=== PATIENT | female | born 1990 | race Caucasian/White ===

== ENCOUNTER 2019-10-28 12:12 | Emergency (ER) | payer BC, MEDICAID, SELFPAY ==
[2019-10-28 12:36] VITALS: BP 127/64; PULSE 70; RESP 16; TEMP 36.6; O2SAT 100
--- NOTE | 2019-10-28 13:52 | ED.GENADULT ---
HPI - General Adult General Chief complaint: Upper Respiratory Infection Stated complaint: fever nausea x 4 days Time Seen by Provider: 10/28/19 13:53 Source: patient and RN notes reviewed Mode of arrival: ambulatory Limitations: no limitations History of Present Illness HPI narrative: 29-year-old female presents with complaints of fatigue, fever, body aches, decrease appetite, vomiting, and nausea for the past 5 days. Vomiting and nausea without blood or coffee ground emesis or abdominal pain. No treatment for nausea or vomiting, last emesis 2 days ago. Tylenol, last this morning @08:00 with relief for fever and body aches. No abdominal pain or cramping or diarrhea. LBM 10/27/19 without blood. Exacerbating factors consist of eating and drinking. High fevers 104F, orally, without sweats or chills, last 1 day ago. Denies headache, dizziness, back pain, dysuria, and blood in stool. Tolerating po intake well. Remains active. LMP 09/13/19. Some parts of this dictation were generated by voice recognition software and may contain typographical and/or grammatical inaccuracies. Related Data Allergies Allergy/AdvReac Type Severity Reaction Status Date / Time No Known Allergies Allergy Verified 10/28/19 13:29 Review of Systems Review of Systems: Narrative: CONSTITUTIONAL: Complains of fever, fatigue. Denies chills, sweats. EYES: Denies visual changes, redness, discharge. ENT: Denies rhinorrhea, congestion, sore throat, otalgia. CARDIOVASCULAR: Denies chest pain, palpitations, edema. RESPIRATORY: Denies dyspnea, wheezing, cough. GASTROINTESTINAL: Denies abdominal pain, vomiting. Complains of vomiting, nausea, and decrease appetite. GENITOURINARY: Complains of frequency, dysuria. Denies hematuria, abnormal discharge. SKIN: Denies rash or itching. MUSCULOSKELETAL: Denies acute back pain, joint pain. Complains of myalgia. NEUROLOGIC: Denies numbness or focal weakness. PSYCHIATRIC: Denies anxiety or depression. All systems reviewed & are unremarkable except as noted in HPI and below. [facility] Past Medical History Medical History (Updated 10/29/19 @ 00:00 by Chauncey Hinds) No significant past medical history Surgical History Surgical History (Updated 10/28/19 @ 14:02 by EMERY López) No significant past surgical history Family History Family History (Updated 10/28/19 @ 14:02 by EEMRY López) Other No significant family history Social History Social History (Updated 10/28/19 @ 14:03 by EMERY López) Smoking status: Never smoker Second hand tobacco smoke exposure: No Alcohol intake: never Substance use: never Living arrangements: with family Occupation/Education: occupation Gender identity (if verbalized by the patient): Female Comments At time of signature, I have reviewed and agree with nursing past medical, surgical, social, and family history. Please see nursing chart for further information. There is no relevant family history pertinent to the presenting complaint. Exam Narrative: Exam Narrative: GENERAL: This is a well-nourished, well-developed patient, in no apparent distress. Talks in full sentences without deficits and ambulates with steady gait without dyspnea. HEAD: normocephalic, atraumatic. EYES: PERRL. Sclera clear/white. Vision is grossly intact. THROAT: Mucous membranes moist, posterior pharynx clear. NECK: Neck supple, non-tender without lymphadenopathy, masses or thyromegaly. CARDIOVASCULAR: Regular rate and rhythm without murmurs, gallops, or rubs. RESPIRATORY: Clear to auscultation. Breath sounds equal bilaterally. No wheezes, rales, or rhonchi. GASTROINTESTINAL: Abdomen soft, no significant tenderness, nondistended. Bowel sounds are active. No hepato-splenomegaly, or palpable masses. No guarding. No palpable abdominal hernia. SKIN: warm, intact with no suspicious lesions or rash, good texture and turgor. NEURO: awake, alert, and oriented to pe
== END 2019-10-28 14:11 | disposition home or self-care (01) ==
PROVIDERS: Emergency Provider Nurse Practitioner Family; PCP Family Medicine
DX: O21.9 Vomiting of pregnancy, unspecified (principal); Z3A.00 Weeks of gestation of pregnancy not specified; O99.89 Other specified diseases and conditions complicating pregnancy, childbirth and the puerperium; R30.0 Dysuria
CPT/HCPCS: 81003; 81025; 87086; 87088; 99203; G0463

== ENCOUNTER 2020-04-13 17:57 | Observation (INO) | payer BC, SELFPAY ==
[2020-04-13] VITALS (14 sets, daily range): BP systolic 95–119; BP diastolic 48–75; PULSE 74–86
[2020-04-13 18:51] LABS: Add Urine Microscopic? YES; Amorphous Sediment Urine Few; Appearance Urine Clear (Clear); Bacteria Urine Trace /hpf; Bilirubin Urine Negative (Negative); Blood Urine 1+ (Negative); Color Urine Yellow (Yellow); Glucose Urine UA Negative (Negative); Ketones Urine Trace mg/dL (Negative); Leukocyte Esterase Ur Negative LEU/UL (Negative); Mucus Urine Heavy /lpf; Nitrate Urine Negative (Negative); Protein Urine 1+ mg/dL (Negative); RBC Urine 51-75 /hpf (0-2); Squamous Epithelial Cell Urine Few /hpf (Few); Urobilinogen Urine Negative mg/dL (<2.0); WBC Urine 0-3 /hpf
[2020-04-13 18:55] LABS: Specific Grav Ur 1.031 (1.001-1.035)
--- NOTE | 2020-04-13 19:52 | PC.NURSE ---
1949- spoke to Vilma BACA in department- report given. order received for Procardia XL 30mg once. will continue to monitor and D/c home.
--- NOTE | 2020-04-13 20:07 | PC.NURSE ---
Vilma BACA in department- results reviewed. Order received for Macrobid 100mg BID x 3 days. RX to be sent home with pt.
[2020-04-13] MEDS: NIFEdipine 30 MG TAB.ER.24 PO (20:20)
--- NOTE | 2020-04-13 22:18 | LDADM ---
This patient, Viviane Allison, was admitted to OB Post 112 on 04/13/20 at 17:57. Plans for labor, pain management and were discussed with patient. Patient/family oriented to hospital policies and general routines including ID bracelet, bed and alarms, visiting hours, pain management, procedures, bathroom and other care routines, personal items, smoking policy, room service/diet and guest tray routines, infant security routines, and visiting hours. Patient/Family are encouraged to report perceived risks to care and to ask questions if they do not understand what they are told or what they should do. See OBIX for further documentation.
--- NOTE | 2020-04-16 07:27 | P.PNOB_ITS ---
OB - Triage/Final Diagnosis Visit Information Date of evaluation: 04/13/20 Reason for evaluation: threatened labor Evaluation Laboratory results: Laboratory Tests 04/13/20 18:39 Urine Color Yellow Urine Appearance Clear Urine pH 6.0 Ur Specific [place] 1.031 Urine Protein 1+ H Urine Glucose (UA) Negative Urine Ketones Trace Ur Blood (Man) 1+ H Urine Nitrate Negative Urine Bilirubin Negative Urine Urobilinogen Negative Leukocyte Esterase Rfl Negative Urine RBC 51-75 H Urine WBC 0-3 Ur Squamous Epith Cells Few Amorphous Sediment Few H Urine Bacteria Trace Urine Mucus Heavy H
== END 2020-04-13 22:37 | disposition home or self-care (01) ==
PROVIDERS: Admitting Provider Obstetrics & Gynecology; PCP Family Medicine; Visit Provider Obstetrics & Gynecology
DX: O47.9 False labor, unspecified (principal); Z3A.00 Weeks of gestation of pregnancy not specified
CPT/HCPCS: 81001; A9270; G0378; G0379

== ENCOUNTER 2020-06-04 05:59 | Inpatient (IN) | payer BC, SELFPAY ==
[2020-05-26 15:48] VITALS: BMI 35.2
[2020-06-04] VITALS (129 sets, daily range): BP systolic 80–132; BP diastolic 48–79; PULSE 59–113; RESP 16; TEMP 36.5–36.8; O2SAT 87–100; BMI 35.2
--- NOTE | 2020-06-04 05:59 | LDADM ---
This patient, Viviane Allison, was admitted to Labor/Delivery/Recovery 103 on 06/04/20 at 05:59. Plans for labor, pain management and were discussed with patient. Patient/family oriented to hospital policies and general routines including ID bracelet, bed and alarms, visiting hours, pain management, procedures, bathroom and other care routines, personal items, smoking policy, room service/diet and guest tray routines, security routines, and visiting hours. Patient/Family are encouraged to report perceived risks to care and to ask questions if they do not understand what they are told or what they should do. See OBIX for further documentation.
[2020-06-04 06:41] LABS: Basophils Percent Auto 0.3 % (0.2-1.2); Eosinophils Absolute Auto 0.1 K/mm3 (0-0.3); Eosinophils Percent Auto 0.7 % (0-4.4); Hematocrit 31.6 % (37.0-47.0); Immature Granulocyte Absolute 0.05 K/mm3 (0.00-0.031); Immature Granulocyte Percent A 0.5 % (0-0.5); Lymphocytes Absolute Auto 2.22 K/mm3 (0.9-3.2); Lymphocytes Percent Auto 22.4 % (18.3-44.2); Mean Corpuscular HGB Conc 31.6 g/dl (32-36); Mean Corpuscular Hemoglobin 26.5 pg (26-34); Mean Corpuscular Volume 83.8 fl (80-100); Mean Platelet Volume 10.6 fl (7.4-10.4); Monocytes Absolute Auto 0.7 K/mm3 (0.1-0.6); Monocytes Percent Auto 7.3 % (2.6-8.5); Neutrophils Absolute Auto 6.8 K/mm3 (1.3-6.7); Neutrophils Percent Auto 68.8 % (45.5-73.1); Platelet Count Result 168 k/mm3 (150-375); Red Blood Count 3.77 M/mm3 (4.2-5.4); Red Cell Distribution Width 13.4 % (11.5-14.5); White Blood Count 9.9 K/mm3 (4.5-10.0)
[2020-06-04] MEDS: OXYTOCIN 30 UNITS/NS 500 ML 30 UNITS/500 ML BAG IV CONT (06:58)
[2020-06-04] MEDS: LACTATED RINGERS 1,000 ML 125 ML IV CONT ×3 (06:59→13:40)
[2020-06-04] MEDS: ONDANSETRON INJ 4 MG/2 ML VIAL IV PUSH (07:17)
--- NOTE | 2020-06-04 07:39 | WPDOBADMIT ---
Obstetrics - Admit Note Admission Note: record reviewed. No pertinent additions to the history and/or any subsequent changes in the physical findings that are not consistent with the expected course of the were found.EIL @39 weeks. AROM clear, odorless fluid. SVE /-2. Additions to the history and/or subsequent changes in the physical findings follow. None.
[2020-06-04 08:53] LABS: Amphetamine Screen Urine Negative (Negative); Barbiturate Screen Urine Negative (Negative); Benzodiazepines Screen Urine Negative (Negative); Cannabinoid Screen Urine Positive (Negative); Cocaine Screen Urine Negative (Negative); Methadone Screen Urine Negative (Negative); Opiate Screen Urine Negative (Negative); Phencyclidine Screen Urine Negative (Negative)
--- NOTE | 2020-06-04 09:14 | WPDANESEPP ---
Anes - Eval Pre Procedure Procedure: Labor Epidural Date/Time: 06/04/20 09:14 Surgeon: Alissa Preop Diagnosis: Labor Pain Pre Op Diagnosis: Induction of Labor Patient Data Age: 29 Gender: F Height: 5 ft 7 in Weight: 102 kg Last Vital Signs Temp 36.5 C 06/04/20 08:00 Pulse 95 06/04/20 09:14 BP 114/62 06/04/20 09:14 Pulse Ox 100 06/04/20 09:10 Allergies Allergy/AdvReac Type Severity Reaction Status Date / Time No Known Allergies Allergy Verified 10/28/19 13:29 Home Medications Medication Instructions Recorded Confirmed Type PNV no.[id number] acid 1 tablet PO DAILY 06/04/20 06/04/20 History [Complete ] valacyclovir 500 mg PO BID 06/04/20 06/04/20 History Laboratory Tests 06/04/20 06/04/20 06/04/20 06:36 06:36 06:36 WBC 9.9 K/mm3 K/mm3 (4.5-10.0) RBC 3.77 M/mm3 L M/mm3 (4.2-5.4) Hgb 10.0 g/dL L g/dL (12.0-15.0) Hct 31.6 % L % (37.0-47.0) MCV 83.8 fl fl (80-100) MCH 26.5 pg pg (26-34) MCHC 31.6 g/dl L g/dl (32-36) RDW 13.4 % % (11.5-14.5) Plt Count 168 k/mm3 k/mm3 (150-375) MPV 10.6 fl H fl (7.4-10.4) Immature Gran % (Auto) 0.5 % % (0-0.5) Neut % (Auto) 68.8 % % (45.5-73.1) Lymph % (Auto) 22.4 % % (18.3-44.2) [place] % (Auto) 7.3 % % (2.6-8.5) Eos % (Auto) 0.7 % % (0-4.4) Baso % (Auto) 0.3 % % (0.2-1.2) Lymph # (Auto) 2.22 K/mm3 K/mm3 (0.9-3.2) [place] # (Auto) 0.7 K/mm3 H K/mm3 (0.1-0.6) Eos # (Auto) 0.1 K/mm3 K/mm3 (0-0.3) Baso # (Auto) 0.0 K/mm3 K/mm3 (0.0-0.1) Abs Immat Gran (auto) 0.05 K/mm3 H K/mm3 (0.00-0.031) Absolute Neuts (auto) 6.8 K/mm3 H K/mm3 (1.3-6.7) Absolute Nucleated RBC 0.0 K/mm3 K/mm3 (0.0-0.012) Nucleated RBC % 0.0 % % (0.0-0.2) Urine Opiates Screen Urine Methadone Screen Ur Barbiturates Screen Ur Phencyclidine Scrn Ur Amphetamine Screen U Benzodiazepines Scrn Urine Cocaine Screen U Cannabinoids Screen RPR Pending Blood Type A Positive Antibody Screen Negative 06/04/20 08:30 WBC RBC Hgb Hct MCV MCH MCHC RDW Plt Count MPV Immature Gran % (Auto) Neut % (Auto) Lymph % (Auto) [place] % (Auto) Eos % (Auto) Baso % (Auto) Lymph # (Auto) [place] # (Auto) Eos # (Auto) Baso # (Auto) Abs Immat Gran (auto) Absolute Neuts (auto) Absolute Nucleated RBC Nucleated RBC % Urine Opiates Screen Negative (Negative) Urine Methadone Screen Negative (Negative) Ur Barbiturates Screen Negative (Negative) Ur Phencyclidine Scrn Negative (Negative) Ur Amphetamine Screen Negative (Negative) U Benzodiazepines Scrn Negative (Negative) Urine Cocaine Screen Negative (Negative) U Cannabinoids Screen Positive A (Negative) RPR Blood Type Antibody Screen : gestational age (CELSA 06/10/20) HCG: positive Patient hx anesthesia problems: none Family hx anesthesia problems: none PMFSH Past Medical History Medical History No significant past medical history Surgical History Surgical History No significant past surgical history Family History Family History Other No significant family history Social History Social History Smoking status: Never smoker Second hand tobacco smoke exposure: No Alcohol intake: never Sub
--- NOTE | 2020-06-04 15:43 | P.PCNOB_ITS ---
OB - Delivery Note Procedure Delivery date: 06/04/20 Procedure: vaginal delivery Intrapartal events: None Induction method: AROM and per pitocin protocol Delivery monitor: external FHT and internal uterine Route of delivery: Laceration Description: Perineal - 1st Degree and Labial Delivery repair: vicryl Specimen: No Estimated blood loss (mL): 78 Anesthesia type: Epidural Disposition: other () [place] Baby Date of : 06/04/20 Time of : 15:24 Weeks of gestation at delivery: 29 Infant gender: Male Weight (pounds): 9 Weight (ounces): 3 presentation: compound position: Right Occiput Anterior Placenta delivery description: Spontaneous cord vessel description: 3 Vessels and Clamped/Cut score one minute: 9 score five minutes: 9 Narrative: Mom and baby skin to skin, both in stable condition.
[2020-06-04] MEDS: OXYTOCIN 30 UNITS/NS 500 ML 30 UNITS/500 ML BAG 125 UNITS IV CONT (15:51)
[2020-06-04] MEDS: ACETAMINOPHEN 325 MG TABLET 650 MG PO (17:05)
[2020-06-04] MEDS: BENZOCAINE 20% AER SPR (*SP) 56 GM CAN 1 SPRAY TOPICAL (18:21)
[2020-06-04] MEDS: WITCH HAZEL 40 PADS 1 PAD TOPICAL (18:21)
--- NOTE | 2020-06-04 18:38 | PC.NURSE ---
Patient transferred to post room #283 via wheelchair. Support person present. Oriented to unit, room, information board, rooming in, admission packet and security measures. Patient verbalizes understanding.
[2020-06-04] MEDS: IBUPROFEN 600 MG TABLET PO (19:17)
[2020-06-05] MEDS: IBUPROFEN 600 MG TABLET PO ×2 (05:15→11:59)
[2020-06-05 06:17] LABS: Hematocrit 28.7 % (37.0-47.0); Hemoglobin 9.2 g/dL (12.0-15.0)
--- NOTE | 2020-06-05 08:41 | WPDANLDPN2 ---
Anes-Prog Note L&D Date/Time: 06/05/20 08:41 Comfortable throughout: labor and delivery Neuraxial method: epidural Epidural/Spinal procedure site: clean & non-tender Neuro status: Neuro function grossly intact. Cardiovascular status: normal Respiratory status: normal Airway patency: baseline Mental status: baseline Post-Op hydration status: normal Vital Signs: Last Vital Signs Temp 36.8 C 06/04/20 19:00 Pulse 69 06/04/20 19:00 Resp 16 06/04/20 19:00 BP 102/63 06/04/20 19:00 Pulse Ox 100 06/04/20 19:00 Pain score (VAS): 0/10 I/O: Intake & Output 06/04/20 06/05/20 06/05/20 23:59 07:59 15:59 Intake Total 500 Output Total 100 Balance 400 Post-procedural complaints: none Patient feedback: Patient satisfied with anesthetic care.
[2020-06-05] MEDS: BENZOCAINE 20% AER SPR (*SP) 56 GM CAN 1 SPRAY TOPICAL (11:44)
[2020-06-05] MEDS: DOCUSATE SODIUM 100 MG CAPSULE PO (11:45)
[2020-06-05] MEDS: LANOLIN (LANSINOH) 7.5 GM CREAM 1 APPLIC TOPICAL (11:45)
[2020-06-05] MEDS: WITCH HAZEL 40 PADS 1 PAD TOPICAL (11:45)
[2020-06-05] MEDS: POLYSACCHARIDE IRON COMPLEX 150 MG CAPSULE PO (11:46)
[2020-06-05] MEDS: MULTIVIT/MIN/PREN/FOL AC/IRON TABLET 1 TAB PO (11:46)
[2020-06-05] MEDS: DIBUCAINE 1% OINTMENT 30 GM TUBE 1 APPLIC TOPICAL (11:59)
--- NOTE | 2020-06-05 12:32 | P.PNOB_ITS ---
OB - PN: Subj Subjective Date/time seen: 06/05/20 12:32 Patient comments: no complaints, pain well controlled, incisional pain, tolerating diet and flatus present OB - PN: Obj Data Labs CBC & Chem 7: 06/05/20 05:15 Labs: Laboratory Results - last 24 hr 06/05/20 05:15 Hgb 9.2 L Hct 28.7 L OB - PN A/P Plan day: 1 Plan: routine care Comments: No problems, routine care, to d/c Time Spent With Patient Time: Total time spent is greater than 50% in coordination of care (as documented) at patient's floor/unit and/or counseling patient: Exam Const: General: comfortable, no acute distress and alert Resp: Effort & Inspection: normal respiratory effort Auscultation: no crac kles, no rales and no rhonchi Cardio: Rate: regular rate Heart sounds: no click, no murmurs and no rubs GI: Inspection: non-distended GI Palp: No Tenderness to palpation present (GI) Auscultation: normal bowel sounds Other: Incision - CDI Extrem: General: normal to inspection, no pedal edema and no calf tenderness
--- NOTE | 2020-06-05 12:32 | PM.OBDSVD ---
DS: Admitting Diagnosis Admitting Diagnosis Admitting Diagnosis: Induction of Labor DS: Discharge Diagnosis Discharge Diagnosis (1) Term delivered: Code(s): O80 - Encounter for full-term uncomplicated delivery Status: Acute OB - DS: Summary OB Procedures : None OB Procedures Intrapartum: Spontaneous Vag Delivery OB Procedures: : None Peripartum Data Delivery Method: Natural Vaginal Status at Discharge Functional status at discharge: independent ambulation Time Spent with Patient Time attestation: Total time spent providing and/or coordinating discharge services: DS: Data Data Completed and Pending Labs on day of discharge: Labs from last 24 hours 06/05/20 05:15 Hgb 9.2 L Hct 28.7 L Discharge Plan Discharge Discharging Clinician: Temo Maxwell Patient Disposition: Home, Self-Care Activity: pelvic rest Diet: regular Patient Instructions: Antibiotic Form Stand Alone Forms: General Discharge Information Follow-up/Referrals: Temo Maxwell MD [Physician] - Discharge Medications: Continued valacyclovir 500 mg tablet 500 mg PO BID RF: 0 Complete 30-975 mg-mcg Tablet 1 tablet PO DAILY RF: 0 Date of admission: 06/04/20 05:59 Primary Care Provider: TessDonaldo Admitting Provider: Temo Maxwell Attending physician on admission: Temo Maxwell Condition: Stable
--- NOTE | 2020-06-05 14:05 | PCCCNOTE ---
SS Note. Received referral for positive THC on UDS. Met with pt. and she confirms using THC at times for insomnia. She lives with her daughter, son, nephew and spouse/father of baby; she plans to return home with them and at discharge likely today. She has all needed items to care for and has transportation home. Have contacted DCFS regarding pt. situation and it is being taken as information only. Intake ID#[id number]. Offered additional resources and she accepted same. Spoke with nursing regarding above and there are no other concerns at this time. No further SS needs indicated.
[2020-06-07 11:55] LABS: Rapid Plasma Reagin Non-Reactive (NonReactive)
== END 2020-06-05 16:30 | disposition home or self-care (01) | DRG 806 ==
LOC: ANHLDR 06:00 → ANHOB2 18:49
PROVIDERS: Advanced Practice Midwife; Admitting Provider Obstetrics & Gynecology; PCP Family Medicine; Visit Provider Obstetrics & Gynecology
DX: O32.6XX0 Maternal care for compound presentation, not applicable or unspecified (principal); O98.52 Other viral diseases complicating childbirth; Z37.0 Single live birth; B00.9 Herpesviral infection, unspecified; O71.82 Other specified trauma to perineum and vulva; Z3A.39 39 weeks gestation of pregnancy
CPT/HCPCS: 36415; 80307; 85014; 85018; 85025; 86592; 86850; 86900; 86901; A9270; J2405; J2590; J2795; J7120

== ENCOUNTER 2022-03-13 05:27 | Emergency (ER) | payer BC, SELFPAY ==
[2022-03-13 05:36] VITALS: BP 110/66; PULSE 98; RESP 20; TEMP 36.5; O2SAT 98
--- NOTE | 2022-03-13 06:14 | ED.GENADULT ---
HPI - General Adult General Chief complaint: Skin/Abscess/Foreign Body Stated complaint: Rash, painful swallowing History of Present Illness HPI narrative: Patient is a 31-year-old female complaining of a sore throat accompanied by a rash that started 2 days ago. Patient denies any cough, nasal congestion, chest pain, shortness of breath, abdominal pain, nausea, vomiting, fever or chills. Related Data Home Medications Medication Instructions Recorded Confirmed lamotrigine 25 mg tablet 75 mg PO DAILY 02/27/22 Allergies Allergy/AdvReac Type Severity Reaction Status Date / Time No Known Allergies Allergy Verified 03/13/22 05:40 Review of Systems Review of Systems: Per HPI All systems reviewed & are unremarkable except as noted in HPI and below PMFSH Past Medical History Medical History Allergies Anemia Anxiety Broken wrist Right Headache Ovarian cyst Surgical History Surgical History No significant past surgical history Family History Family History Grandparent Breast cancer Diabetes mellitus Depression Thyroid disease Alcoholism Mother Breast cancer Alcoholism Depression Thyroid disease Son Asthma Father Alcoholism Sibling Alcoholism Depression Social History Social History Smoking status: Never smoker Second hand tobacco smoke exposure: No Alcohol intake: never Substance use: never 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 [employer] Gender identity (if verbalized by the patient): Female Spiritual care concerns: No Agree to blood products: Yes Exam Const: General: cooperative, healthy appearing, comfortable, no acute distress, well developed, alert and awake; No confusion Orientation/consciousness: oriented to person, oriented to place, oriented to time, patient oriented x3 and No confusion Limitations: no limitations HENMT: Head: normal to inspection, normocephalic and atraumatic Ears: hearing grossly normal bilaterally, TM normal on the right and TM normal on the left General nose exam: Normal external nose present, Normal nares present and No nasal discharge present Face and sinus: normal facial exam Mouth: Yes Normal oral and palatal mucosa present, Yes lip normal, Yes tongue normal and Yes oropharynx normal Throat: uvula midline Other: Erythematous uvula and posterior oropharynx, negative for edema or swelling, negative for exudates. Negative for muffled voice or malodorous breath. Eyes: General: appearance normal, both eyes and all related structures Pupils: Equal, round and reactive pupils present EOM: EOMs intact bilaterally Neck: Neck: normal visual inspection, full ROM, no lymphadenopathy and no meningeal signs Chest: Chest palpation & inspection: normal inspection of the chest Resp: Effort & Inspection: normal respiratory effort, able to speak in complete sentences, no respiratory distress and not tachypneic Auscultation: clear to auscultation bilaterally, no crackles, no rales, no rhonchi and no wheezes Cardio: Rate: regular rate Rhythm: regular rhythm GI: Inspection: normal to inspection GI Palp: No abdominal tenderness, Yes Soft to palpation, No Tenderness to palpation present (GI), No Guarding due to palpation present (GI), No Rigid due to palpation and No Rebound tenderness present Auscultation: normal bowel sounds : General: Yes no CVA tenderness Back/Spine/Pelvis: Back: no CVA tenderness Skin: General skin exam: normal color, elasticity normal and turgor normal Other: Erythematous maculopapular rash bilateral lower extremities Neuro: General: oriented to person, oriented to place, oriented to time, patient oriented x3, tone normal, moves all extremities, Normal light touc
[2022-03-13 07:21] VITALS: BP 114/69; PULSE 69; RESP 15; O2SAT 100
== END 2022-03-13 07:22 | disposition home or self-care (01) ==
PROVIDERS: Emergency Provider Emergency Medicine; PCP Internal Medicine
DX: J02.9 Acute pharyngitis, unspecified (principal); Z86.2 Personal history of diseases of the blood and blood-forming organs and certain disorders involving the immune mechanism
CPT/HCPCS: 87081; 87880; 99283

== ENCOUNTER 2023-03-20 14:18 | Emergency (ER) | payer BC, SELFPAY ==
[2023-03-20 14:24] VITALS: BP 119/88; PULSE 80; RESP 20; TEMP 36.7; O2SAT 98
--- NOTE | 2023-03-20 14:26 | ED.URI ---
HPI - URI/Sore Throat General Chief Complaint: Upper Respiratory Infection Stated Complaint: Sore Throat Source: patient and RN notes reviewed History of Present Illness HPI Narrative: 32 yo F presents to urgent care with complaints of a sore throat, fevers, body aches, and cough x 3 days. reports nausea but states he has a hx of nausea. Pt states she may have been exposed to strep throat. Reports chest burning with her cough. Denies any ear pain, congestion, V/D, or other complains. Pt has taken ibuprofen today. Related Data Allergies Allergy/AdvReac Type Severity Reaction Status Date / Time No Known Allergies Allergy Verified 03/13/22 05:40 Review of Systems Review of Systems: CONSTITUTIONAL: fevers, body aches EYES: Denies visual changes, redness, or discharge. ENT: sore throat CARDIOVASCULAR: chest burning/tightness RESPIRATORY: cough GASTROINTESTINAL: nausea GENITOURINARY: Denies dysuria or hematuria. SKIN: Denies rash or itching. MUSCULOSKELETAL: Denies back pain, joint pain, or myalgia. NEUROLOGIC: Denies headache, numbness, or weakness. Pertinent positives per HPI. [facility] Past Medical History Medical History (Updated 03/20/23 @ 14:43 by Viviane Barger APRN) Adjustment disorder Allergies Anemia Anxiety Broken wrist Right Depression Headache Ovarian cyst Surgical History Surgical History No significant past surgical history Family History Family History Grandparent Breast cancer Diabetes mellitus Depression Thyroid disease Alcoholism Mother Breast cancer Alcoholism Depression Thyroid disease Son Asthma Father Alcoholism Sibling Alcoholism Depression Social History Social History Smoking status: Never smoker Second hand tobacco smoke exposure: No Alcohol intake: never Substance use: never Living arrangements: with family Occupation/Education: occupation 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 There is no relevant family history pertinent to the patient complaint. Exam Narrative: GENERAL: This is a well-nourished, well-developed patient, in no apparent distress. HEAD: normocephalic, atraumatic. EYES: Sclera clear/white. Vision is grossly intact. EARS: External ears normal, auditory canals clear and without drainage. Hearing grossly intact. NOSE: External nose normal with no obvious nasal discharge, nares without redness, no rhinorrhea. THROAT: Mucous membranes moist, posterior pharynx clear. NECK: Neck supple, non-tender without lymphadenopathy, masses or thyromegaly. CARDIOVASCULAR: Regular rate and rhythm without murmurs, gallops, or rubs. RESPIRATORY: Clear to auscultation. Breath sounds equal bilaterally. No wheezes, rales, or rhonchi. GASTROINTESTINAL: Abdomen soft, non-tender, nondistended. Bowel sounds are active. No hepato-splenomegaly, or palpable masses. No guarding. SKIN: warm, intact with no suspicious lesions or rash, good texture and turgor. NEURO: awake, alert, and oriented to person, place and time. There were no obvious focal neurologic abnormalities. EXTREMITIES: No clubbing, cyanosis, or edema. No joint tenderness, effusion, or edema noted. BACK: Nontender without deformity or crepitus. No flank tenderness. Course Course Level of Care: Express Care Visit Vital Signs Vital signs: Vital Signs Temperature 98.0 F 03/20/23 14:24 Pulse Rate 80 03/20/23 14:24 Respiratory Rate 20 03/20/23 14:24 Blood Pressure 119/88 03/20/23 14:24 Pulse Oximetry 98 08
== END 2023-03-20 14:47 | disposition home or self-care (01) ==
PROVIDERS: Emergency Provider Nurse Practitioner Family
DX: B34.9 Viral infection, unspecified (principal)
CPT/HCPCS: 87081; 87880; 99213; G0463